=== PATIENT | male | born 1990 | race Caucasian/White ===

== ENCOUNTER 2017-12-22 13:26 | Emergency (ER) | payer OTHER ==
[~2017-12-22] VITALS: Ht 188 cm; Wt 136.1 kg
--- NOTE | 2017-12-22 14:35 | ED GENERAL ADULT ---
History of Present Illness General Chief Complaint: ETOH/Drug Related Complaint Stated Complaint: ? WITHDRAWL FROM ONLINE MEDS Source: patient Exam Limitations: no limitations Vital Signs & Intake/Output Vital Signs & Intake/Output Vital Signs Date Time Temp Pulse Resp B/P B/P Pulse O2 O2 Flow FiO2 Mean Ox Delivery Rate 12/22 1655 87 18 98 Room Air 12/22 1629 98.0 100 18 153/92 98 Room Air 12/22 1342 97.4 120 20 169/114 99 Room Air Allergies Uncoded Allergies: CILLINS (Intermediate, SWELLING 12/22/17) Reconcile Medications Trazodone HCl 100 MG TABLET 1 TAB PO QPM INSOMNIA Triage Note: C/O PALPITATIONS, ANXIETY, TREMORS, INSOMINA X 4 DAYS. REPORTS HE WAD BEEN TAKING AN MAILORDER MOOD ENHANCER X 3 WEEKS (PHENIBUT HCL 250 MG) AND STOPPED TAKING IT ON 12/19 DUE TO STOMACH UPSET. Triage Nurses Notes Reviewed? yes Onset: Gradual Duration: day(s): (4-5), better, changing over time, continues in ED Timing: single episode today Injury Environment: home Severity: mild, moderate No Modifying Factors: none HPI: 27-year-old male with no past medical history presents for evaluation of insomnia, palpitations, anxiety and tremors over the past 4-5 days. Patient states that symptoms started after he abruptly discontinued a supplement that he received from an on line website. Supplement was called PHENIBUT. And it is used for mood enhancement. Patient states that he took this daily twice a day for about one month. He started torealize that it was causing upset stomach so he abruptly discontinued IT. The day after he stopped taking the supplement he noticed increasing anxiety tremors and palpitations. He notes that he feels like his heart is beating faster and harder than usual. He denies any chest pain or shortness of breath. No dizziness or lightheadedness. He denies any illicit drug use. Is not taking any other medicines. He also reports that he has had very poor sleep for the past 4-5 days. He's been taking Benadryl and melatonin without any improvement. Patient reports that his symptoms have improved significantly over the past 1-2 days. He states that he currently is just looking for some help with sleep. He has not had any palpitations anxiety or tremors for several days now. He's never had anything like this in the past. (Jayesh Milner) Past History Travel History Traveled to [place] past 21 day No Medical History Any Pertinent Medical History? see below for history Neurological: NONE EENT: NONE Cardiovascular: NONE Respiratory: NONE Gastrointestinal: NONE Hepatic: NONE Renal: NONE Musculoskeletal: NONE Psychiatric: NONE Endocrine: NONE Surgical History Surgical History: non-contributory Psychosocial History What is your primary language Welsh Tobacco Use: Quit >30 days ago ETOH Use: denies use Family History Hx Contributory? No (Jayesh Milner) Review of Systems Review of Systems Constitutional: Reports: no symptoms. EENTM: Reports: no symptoms. Respiratory: Reports: no symptoms. Cardiovascular: Reports: see HPI, palpitations. GI: Reports: no symptoms. Genitourinary: Reports: no symptoms. Musculoskeletal: Reports: no symptoms. Skin: Reports: no symptoms. Neurological/Psychological: Reports: see HPI, anxiety, tremors. Hematologic/Endocrine: Reports: no symptoms. Immunologic/Allergic: Reports: no symptoms. All Other Systems: Reviewed and Negative (Jayesh Milner) Physical Exam Physical Exam General Appearance: well developed/nourished, no apparent distress, alert, awake , obese Head: atraumatic, normal appearance Eyes: Bilateral: normal appearance, PERRL, EOMI. Ears, Nose, Throat: normal pharynx, normal ENT inspection, hearing grossly normal Neck: normal inspection, supple, full range of motion Respiratory: normal breath sounds, chest non-tender, no respiratory distress, lungs clear Cardiovascular: normal peripheral pulses, tachycardia (RATE 112), NO MURMURS Peripheral Pulses: 2+ radial (R), 2+ radial (L) Gastrointestinal: soft, non-tender Back: normal inspection, normal range of motion, no vertebral tenderness Extremities: normal inspection, normal range of motion, no edema Neurologic/Psych: no motor/sensory deficits, awake, alert, oriented x 3, normal gait, normal mood/affect, reed or wind instrument tuner II-XII nml as tested Skin: intact, normal color, warm/dry Lymphatic: no anterior cervical jesse Core Measures ACS in differential dx? No CVA/TIA Diagnosis: No Sepsis Present: No Sepsis Focused Exam Completed? No (Jayesh Milner) Progress Differential Diagnoses I considered the following diagnoses in my evaluation of the patient: [Drug withdrawal, drug intoxication, electrolyte abnormality, PE, acute coronary syndrome, arrhythmia, drug intoxication] Plan of Care: Orders Procedure Date/time Status D-DIMER 12/22 1519 Complete URINE DRUG SCREEN FOR ER ONLY 12/22 1354 Complete URINALYSIS 12/22 1354 Complete ACETOMINOPHEN 12/22 135 Complete TSH REFLEX 12/22 135 Complete TROPONIN LEVEL 12/22 135 Complete SALICYLATE 12/22 135 Complete MAGNESIUM 12/22 135 Complete COMPREHENSIVE METABOLIC PANEL 12/22 135 Complete CBC WITHOUT DIFFERENTIAL 12/22 1354 Complete EKG 12/22 1341 Active Laboratory Tests 12/22/17 1556: Urine Opiates Screen < 100, Methadone Screen < 40, Barbiturate Screen < 60, Ur Phencyclidine Scrn < 6.00, Amphetamines Screen < 100, U Benzodiazepines Scrn < 85, Urine Cocaine Screen < 50, Urine Cannabis Screen 39.50, Urine Color YEL, Urine Clarity CLEAR, Urine pH 6.5, Ur Specific [place] <= 1.005, Urine Protein NEG, Urine Ketones NEG, Urine Nitrite NEG, Urine Bilirubin NEG, Urine Urobilinogen 0.2, Ur Leukocyte Esterase NEG, Ur Microscopic EXAM NOT REQUIRED, Urine Hemoglobin NEG, Urine Glucose NEG 12/22/17 1548: D-Dimer High Sensitivty < 200 12/22/17 1431: Anion Gap 16, Estimated GFR > 60, BUN/Creatinine Ratio 14.4, Glucose 112 H, Calcium 10.3 H, Magnesium 1.9, Total Bilirubin 1.0, AST 18, ALT 31, Alkaline Phosphatase 97, Troponin I < 0.01, Total Protein 8.1, Albumin 4.7, Globulin 3.4, Albumin/Globulin Ratio 1.4, TSH &T3 &Free T4 Intrp 1.290, CBC w Diff NO MAN DIFF REQ, RBC 5.80, MCV 79.7 L, MCH 27.3, MCHC 34.3, RDW 14.1, MPV 9.8, Gran % 80.8 H, Lymphocytes % 13.7 L, Monocytes % 4.3, Eosinophils % 0.9, Basophils % 0.3, Absolute Granulocytes 10.5 H, Absolute Lymphocytes 1.8, Absolute Monocytes 0.6, Absolute Eosinophils 0.1, Absolute Basophils 0, Salicylates < 1.0, Acetaminophen < 10.0 L Patient seen and evaluated. He had been taking a supplement called pHENIBUT daily for the past month. He states that he stopped taking it abruptly 4 or 5 days ago and the next day noticed palpitations tremors anxiety and insomnia. Symptoms have improved other than insomnia. He states he has not slept for 4 days. On initial evaluation patient was tachycardic to the 120s blood pressure was stable. He denies any chest pain shortness of breath dizziness or lightheadedness. Patient was monitored on telemetry and has been in the 80s to 90s. Blood work shows a mildly elevated white blood cell count of 13,000 however he also within normal limits. D-dimer is negative troponin is negative. EKG shows sinus tachycardia with some borderline T-wave aBN. Patient was monitored on telemetry for several hours and is maintaining a rate in the 80s and 90s. His blood pressure oxygen saturation are stable. Reviewed all results of today's visit with patient. A search was performed regarding phenibut withdrawal and many of the patient's symptoms appear to be reported by others taking the supplement. There appears to be some anecdotal evidence that baclofen may help with the withdrawal symptoms. Discussed with patient the possibility of using this medication he declines at this point. He states that his symptoms have improved significantly other than insomnia he is wants something to help with sleep. She'll be given a prescription for trazodone to use as needed for insomnia. He is also given a primary care doctor to follow-up with. Discussed return precautions in detail. Patient is nontoxic-appearing he agrees the plan. 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 Tylenol as needed for pain. Trazodone for insomnia. Make a follow-up appointment with provided primary care doctor as soon as possible. Monitor symptoms closely return with any concerns. Departure Forms: Customer Survey General Discharge Information Prescriptions: Current Visit Scripts Trazodone HCl 1 TAB PO QPM #15 TAB (Jayesh Milner) PA/CANNERY TENDER ENGINEER Co-Sign Statement Statement: ED Attending supervision documentation- I saw and evaluated the patient. I have also reviewed all the pertinent lab results and diagnostic results. I agree with the findings and the plan of care as documented in the PA's/CANNERY TENDER ENGINEER's documentation. x I have reviewed the ED Record and agree with the PA's/CANNERY TENDER ENGINEER's documentation. [] Additions or exceptions (if any) to the PAs/CANNERY TENDER ENGINEER's note and plan are summarized below: [] (Liliana MUELLER,Kwan) Critical Care Note Critical Care Note Critical Care Time: non-applicable (Jayesh Milner)
[2017-12-22 14:43] LABS: ABSOLUTE BASOPHIL COUNT 0 /CUMM (0.0-0.2); ABSOLUTE EOSINOPHIL COUNT 0.1 /CUMM (0.0-0.7); ABSOLUTE GRANULOCYTE CT 10.5 /CUMM (1.4-6.5); ABSOLUTE LYMPH COUNT 1.8 /CUMM (1.2-3.4); ABSOLUTE MONOCYTE COUNT 0.6 /CUMM (0.10-0.60); BASOPHIL % 0.3 % (0.0-2.0); EOSINOPHIL % 0.9 % (0-5); GRANULOCYTE % 80.8 % (42.2-75.2); HEMATOCRIT 46.2 % (42-52); MEAN CORPUSCULAR HGB 27.3 PG (27.0-31.0); MEAN CORPUSCULAR HGB CONC 34.3 G/DL (33.0-37.0); MEAN CORPUSCULAR VOLUME 79.7 FL (80.0-94.0); MEAN PLATELET VOLUME 9.8 FL (7.4-10.4); PLATELET COUNT 248 /CUMM (130-400); RBC DISTRIBUTION WIDTH 14.1 % (11.5-14.5)
[2017-12-22 16:29] VITALS: BP 153/92
[2017-12-22] MEDS ORDERED: TRAZODONE HCL100 M1 PO (16:52)
== END 2017-12-22 17:01 ==
LOC: ERH 13:26
PROVIDERS: Physician Assistant Medical
DX: F19.239 Other psychoactive substance dependence with withdrawal, unspecified (principal)
CPT/HCPCS: 80307; 81003; 93005; 93010; G0480